=== PATIENT | male | born 1985 | race Caucasian/White ===

== ENCOUNTER 2024-12-06 10:12 | Outpatient (AMB) | payer OTHER, SELFPAY ==
--- NOTE | 2024-12-06 10:28 | MHC.OFFVIS ---
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 He is a patient of Dr. Mcclelland. He is seen for the following urologic conditions - scrotal pain - prostatitis Nonspecific pelvic symptoms Discomfort with testicles Decrease in ejaculatory volume On exam boggy right prostate Will treat for chronic prostatitis [facility] Medical History (Updated 12/06/24 @ 11:07 by Suman Lo MD) Exercise-induced asthma Review of Systems Const Denies chills and Denies fever(s) Card Reports no additional complaints and Denies syncope Resp Denies cough GI Denies abdominal pain and Denies heartburn Reports as per HPI and Denies change in libido Neuro Denies syncope Psych Denies change in libido Endo Denies change in libido Physical Exam Const General: cooperative, healthy appearing, comfortable and no acute distress Orientation/consciousness: patient oriented x3 HEENT Face and sinus: Yes normal facial exam Mouth: moist mucous membranes Neck Neck: Yes normal visual inspection, Yes full ROM and Yes trachea midline Chest Chest palpation & inspection: normal inspection of the chest Resp Effort & Inspection: normal respiratory effort, able to speak in complete sentences and no respiratory distress GI Inspection: Yes normal to inspection Rectal Exam - Male: Yes normal sphincter tone and Yes prostate normal Male General Exam: Yes normal external exam Penis: normal penis and circumcised Meatus: meatus normal Scrotum: scrotum normal Testes: Testes normal Back/Spine/Pelvis Cervical Spine: normal cervical lordosis Thoracic/Lumbar Spine: thoracic and lumbar spine normal to inspection Skin General skin exam: no rashes or lesions noted Neuro General: patient oriented x3, gait normal, tone normal and moves all extremities Extrem General: Yes normal to inspection and Yes capillary refill normal Assessment & Plan Assessment & Plan (1) Prostatitis: Code(s): N41.9 - Inflammatory disease of prostate, unspecified Category: Medical Plan Prostatitis there Medications: New ciprofloxacin HCl 500 mg PO BID 28 tabs 0RF 14 days N41.9 - Inflammatory disease of prostate, unspecified meloxicam 15 mg PO DAILY 30 tabs 0RF 30 days N41.9 - Inflammatory disease of prostate, unspecified, R10.31 - Right lower quadrant pain, R10.32 - Left lower quadrant pain prednisone 20 mg PO DAILY 5 tabs 0RF 5 days N20.0 - Calculus of kidney, N41.9 - Inflammatory disease of prostate, unspecified Patient Instructions: This note is constructed using voice recognition software. While every effort has been made to ensure accuracy customer engagement manager errors may have been included. Imaging studies, laboratory and physical exam results were discussed and reviewed in detail. No major barriers to patient understanding were identified. An opportunity to ask questions regarding the treatment plan was provided. All questions were answered. The patient expressed understanding and agreement with the above treatment plan. The patient is aware they should contact our office by phone for worsening of their current condition or the appearance of new urologic symptoms. Compliance is encouraged with any medications and followup testing that is ordered. It is a privilege to participate in the urologic care of your patient. If you have any questions or concerns regarding treatment for the above conditions, or other urologic issues, please do not hesitate to contact me. The office telephone contact is [phone]. Sincerely, Dr Suman Lo MD, [facility] - Urology Compassionate Specialist Care for the Genitourinary System Coding Level of Care Code New Pt Level 4 (42508) Diagnoses Prostatitis N41.9
--- OUTSIDE RECORDS SUMMARY | 2024-12-06 11:19 | XMS_ITS | Clinical Summary ---
Author Organization [place] [address] Jerson jones [facility] Address [address] [place] Phone Care Team Providers Care Mechanic Assistant Name Role Phone Kinsey Chi DO Primary Care Provider [phone] Allergies No known active allergies Medications albuterol HFA (PROAIR HFA ; PROVENTIL HFA ; VENTOLIN HFA) 90 mcg/actuation inhaler Inhale 2 puffs by mouth every 6 (six) hours if needed for wheezing. Exercise asthma prn Active methylPREDNISol one (MEDROL DOSPAK) 4 mg tablet Take 1 tablet by mouth as directed on the package. 21 tablet 11/20/19 25 Active Problems Problem Noted Date Diagnosed Date Exercise-induced asthma 01/16/2021 Encounters Date Type Department Care Team Description 11/24/2024 11:04 AM EDT - 11/24/2024 11:59 PM EDT [facility] En[facility] [address] [place] [address] Foot pain, right Discharge Disposition: Home or Self Care 11/24/2024 10:30 AM EDT Office Visit Internal Medicine - [address] [phone] David Hayes NP Foot pain, right (Primary Dx); Retrolisthesis of vertebrae 11/18/2024 [facility] [phone] Kinsey Chi DO Hospital Follow-up 11/17/2024 7:47 AM EDT - 11/17/2024 12:37 PM EDT Emergency [facility] [address] [place] [phone] Jeffery Santana, Contusion of left foot, initial encounter (Primary Dx); Dysuria Discharge Disposition: Home or Self Care 11/13/2024 4:57 PM EDT - 11/13/2024 7:40 PM EDT Emergency [facility] [address] [place] [phone] Contusion of left foot, initial encounter (Primary Dx) Discharge Disposition: Home or Self Care 09/21/2024 2:10 PM EDT - 09/21/2024 11:59 PM EDT Hospital Encounter Ultrasound - [facility] [address] [place], [place] [phone] Scrotum pain Discharge Disposition: Home or Self Care 09/21/2024 1:15 PM EDT Office Visit Internal Medicine - [facility] [address] [place], [place] [phone] Lashaun Mcclelland NP Scrotum pain (Primary Dx); Screen for STD (sexually transmitted disease); Pruritic rash 09/21/2024 Telephone Internal Medicine - [facility] [address] [place], [place] [phone] Kinsey Chi DO from Last 3 Months Immunizations Name Administration Dates Next Due Hepatitis B (Hkoaldy-B-Bhlsy , Recombivax HB-Adult) 19yo and older 01/26/2024 MMR, measles mumps and rubel la Live (Priorix; M-M-R II) 12mo and older 01/26/2024 Pneumococcal polysaccharide 23 valent (Pneumovax 23) 2yo and older 03/05/2021 Tdap Tetanus diptheria acell ular pertussis (Boostrix; Adacel) 7yo and older 03/05/2021 Surgical History Surgery Date Site/Laterality Comments SHOULDER SURGERY PROCEDURE: HISTORICAL SHOULDER SURGERY OTHER SURGICAL HISTORY PROCEDURE: EXCISION OF SALIVARY GLAND Medical History Medical History Date Comments Exercise-induced asthma 01/16/2021 DX:Exerc ise-induced asthma Family History Medical History Relation Name Comments No Known Problems Brother No Known Problems Father Parkinson's Disease Maternal Grandfather Alzheimer's disease Maternal Grandmother No Known Problems Mother Prostate cancer Paternal Grandfather Stroke Paternal Grandmother No Known Problems Sister 1 No Known Problems Sister 2 Relation Name Status Comments Brother Alive Father Alive Maternal Grandfather Maternal Grandmother Mother Alive Paternal Grandfather Paternal Grandmother Sister 1 Alive Sister 2 Alive Social History Tobacco Use Types Packs/Day Years Used Date Smoking Tobacco: Former Cigarettes 0.5 18.5 S tarted: 06/08/2006 Smokeless Tobacco: Never Tobacco Cessation:Counseling Given: Not Answered Alcohol Use Standard Drinks/Week Comments Not Currently 14 (1 standard drink = 0.6 oz pu re alcohol) Housing Instability Answer Date Recorde d Are you worried that in the next 2 months you may not have stable housing? Patient declined 09/19/2024 Food Access & Nutrition Answer Date Rec orded Do you have access to a vari ety of food including fruits and vegetables? Patient declined 09/19/2024 Health Literacy Answer Date Recorded How often do you need to hav e someone help you when you read instructions, pamphlets, or other written material from your doctor or pharmacy? Patient declined 09/19/2024 Caregiver: How often do you need to have someone help you when you read instructions, pamphlets, or other written material from your doctor or pharmacy? Not on file 025 Financial Risk Answer Date Recorded How hard is it for you to pa y for the very basics like food, housing, medical care, and air conditioning / heating? Patient declined 09/19/2024 Transportation Answer Date Recorded Has the lack of transportati on kept you from meetings, work, or from getting things needed for daily living? Patient declined 09/19/2024 Has the lack of transportati on kept you from medical appointments or from getting medications? Patient declined 09/19/2024 Social Isolation Answer Date Recorded How often do you feel lonely or isolated from those around you? Patient declined 09/19/2024 Food Risk Answer Date Recorded Within the past 12 months we worried whether our food would run out before we got money to buy more. Patient declined 025 Within the past 12 months th e food we bought just didn't last and we didn't have money to get more. Patient declined 09/06 Dependent Care Answer Date Recorded Do you need help finding or paying for care for your loved ones. For example, child care group leader or elderly care for an older adult? Patient declined 09/19/2024 Education Answer Date Recorded Do you think completing more education or training, like finishing a GED, going to college, or learning a trade, would be helpful for you? Patient declined 09/19/2024 Employment and Income Answer Date Recor ded During the last four weeks, have you been actively looking for work? Patient declined 09/19/2024 Living Situation Answer Date Recorded What is your living situation? 0 09/19/2024 Sex and Gender Information Value Date Recorded Sex Assigned at Not on file Legal Sex Male 9:39 AM EST Gender Identity Not on file Sexual Orientation Not on file Obstetrics History Last Filed Vital Signs Vital Sign Reading Time Taken Comments Blood Pressure 112/80 11/24/2024 10:28 AM EDT Pulse 72 11/24/2024 10:28 AM EDT Temperature 36.7 C (98.1 F) 11/17/2024 10:25 AM EDT Respiratory Rate 18 11/24/2024 10:2 8 AM EDT Oxygen Saturation 100% 11/17/2024 10: 25 AM EDT Inhaled Oxygen Concentration - - Weight 74.8 kg (164 lb 14.4 oz) 025 10:28 AM EDT Height 170.2 cm (5' 7 ) 11/24/2024 10:2 8 AM EDT Body Mass Index 25.83 11/24/2024 10:28 AM EDT Plan of Treatment Health Maintenance Due Date Last Done Comments Pneumococcal Vaccine: Pediatrics (0 to 5 Years) and At-Risk Patients (6 to 64 Years) (2 of 2 - PCV) 03/05/2022 03/05/2021 COVID-19 Vaccine ( - 2023-2 5 season) 2024 10/13/2020, 09/15/2020 Hepatitis B Vaccines (2 of 3 - 19+ 3-dose series) 02/23/2024 01/26/2024 Influenza Vaccine (#1) 2025 Depression Screening 09/19/2025 09/19/2024 Social Influencers of Health Screening 09/19/2025 09/19/2024 Cholesterol Screening (Lipid Panel) 03/11/2026 03/11/2021 DTaP,Tdap,and Td Vaccines (2 - Td or Tdap) 03/05/2031 03/05/2021 MMR Vaccines Aged Out 01/26/2024 No longer eligi ble based on patient's age to complete this topic HIV Screening Completed 09/21/2024 Hepatitis C Screening Completed 09/21/2024 HIB Vaccines Aged Out No longer eligi ble based on patient's age to complete this topic HPV Vaccines Aged Out No longer eligi ble based on patient's age to complete this topic Hepatitis A Vaccines Aged Out No long er eligible based on patient's age to complete this topic IPV Vaccines Aged Out No longer eligi ble based on patient's age to complete this topic Meningococcal ACWY Vaccine Aged Out N o longer eligible based on patient's age to complete this topic Meningococcal B Vaccine Aged Out No l onger eligible based on patient's age to complete this topic RSV Immunization Patients Under 20 months Aged Out No longer eligible b ased on patient's age to complete this topic Varicella Vaccines Aged Out No longer eligible based on patient's age to complete this topic Procedures Procedure Name Priority Date/Time Associated Diagnosis Comments XR LUMBAR SPINE 4+ VIEWS Routine 11/24/2024 11:26 AM EDT Foot pain, right CHLAMYDIA TRACHOMATIS AND NEISSERIA GONORRHOEAE PCR STAT 11/17/2024 11:45 AM EDT CABRAL URINE CULTURE TUBE STAT 11/18/19 9:17 AM EDT URINALYSIS WITH REFLEX MICROSCOPIC AND CULTURE STAT 11/17/2024 9:17 AM EDT URINALYSIS WITH REFLEX MICROSCOPIC AND CULTURE STAT 11/17/2024 9:17 AM EDT C-REACTIVE PROTEIN STAT 11/17/2024 8: 12 AM EDT CBC WITH AUTO DIFFERENTIAL STAT 11/17/2024 8:04 AM EDT COMPREHENSIVE METABOLIC PANEL STAT 11/17/2024 8:04 AM EDT CBC AND DIFFERENTIAL STAT 11/17/2024 8:[address] LOWER EXTREMITY WO CONTRAST LEFT STAT 11/13/2024 6:34 PM EDT XR FOOT 3+ VIEWS LEFT STAT 11/13/2024 1:51 PM EDT US SCROTUM AND CONTENTS Routine 09/22/19 2:33 PM EDT Scrotum pain CABRAL URINE CULTURE TUBE Routine 09/22/19 2:08 PM EDT Screen for STD (sexually transmitted disease) URINALYSIS WITH REFLEX MICROSCOPIC AND CULTURE Routine 09/21/2024 2:08 PM EDT Screen for STD (sexually transmitted disease) TREPONEMA PALLIDUM ANTIBODY WITH REFLEX TO RPR AND PARTICLE AGGLUTINATION Routine 09/21/2024 2:08 PM EDT Screen for STD (sexually transmitted disease) URINALYSIS WITH REFLEX MICROSCOPIC AND CULTURE Routine 09/21/2024 2:08 PM EDT Screen for STD (sexually transmitted disease) HIV 1, 2 ANTIBODY, P24 ANTIGEN WITH REFLEX TO DIFFERENTIATION Routine 09/21/2024 2:08 PM EDT Screen for STD (sexually transmitted disease) HEPATITIS C ANTIBODY Routine 09/21/2024 2:08 PM EDT Screen for STD (sexually transmitted disease) CHLAMYDIA TRACHOMATIS AND NEISSERIA GONORRHOEAE PCR Routine 09/21/2024 2:08 PM EDT Screen for STD (sexually transmitted disease) LIPID PANEL Routine 03/11/2021 from Last 3 Months or Most Recently Relevant to Health Maintenance Results * XR Lumbar Spine 4+ Views (11/24/2024 11:26 AM EDT) Anatomical Region Laterality Modality Spine, L-spine Radiographic Shirin ging 11/24/2024 1:31 PM EDT Impressions 11/24/2024 1:33 PM EDT Minimal grade 1 retrolisthesis of L4 on L5. No significant degenerative changes. -------- FINAL REPORT -------- Dictated By: Meche Rodriguez Dictated Date: 11/24/2024 13:31 ET Assigned Physician: Meche Rodriguez Reviewed and Electronically Signed By: Meche Rodriguez Signed Date: 11/24/2024 13:33 ET Workstation ID: [id number] Transcribed By: Self Edit Transcribed Date: 11/24/2024 13:31 ET Narrative 11/24/2024 1:33 PM EDT XR LUMBAR SPINE 5 VIEWS Reason: OTHER foot pain Comparison: None FINDINGS: Minimal grade 1 retrolisthesis of L4 on L5. Vertebral body heights and disc spaces are preserved. No facet arthropathy. Bilateral sacroiliac joints are intact. Procedure Note Meche Rodriguez MD - 11/24/2024 XR LUMBAR SPINE 5 VIEWS Reason: OTHER foot pain Comparison: None FINDINGS: Minimal grade 1 retrolisthesis of L4 on L5. Vertebral body heights anddisc spaces are preserved. No facet arthropathy. Bilateral sacroiliacjoints are intact. IMPRESSION: Minimal grade 1 retrolisthesis of L4 on L5. No significant degenerativechanges. -------- FINAL REPORT -------- Dictated By: Meche Rodriguez Dictated Date: 11/24/2024 13:31 ET Assigned Physician: Meche Rodriguez Reviewed and Electronically Signed By: Meche Rodriguez Signed Date: 11/24/2024 13:33 ET Workstation ID: [id number] Transcribed By: Self Edit Transcribed Date: 11/24/2024 13:31 ET David Hayes LEAD NETWORK ENGINEER IMG XR PROCEDURES Final Result * Chlamydia trachomatis and Neisseria gonorrhoeae molecular study (11/17/2024 11:45 AM EDT) Only the most recent of2 resultswithin the time period is included. Neisseria gonorrhoeae PCR Negative Negative LAB MOLECULAR DIAGNOSTICS METHOD 11/17/2024 2:55 PM EDT [facility] Chlamydia trachomatis PCR Negative Negative LAB MOLECULAR DIAGNOSTICS METHOD 11/17/2024 2:55 PM EDT [facility] Urine Urine specimen from urethra / Unknown Non-blood Collection / Unknown 11/17/2024 11:45 AM EDT 11/17/2024 12:13 PM EDT us Jeffery Santana DO LAB MICROBIOLOGY - GENERAL ORDERABLES Final Result [facility] [address] [place] [address], [place] [phone] * Urinalysis with reflex microscopic and culture (11/17/2024 9:17 AM EDT) Only the most recent of2 resultswithin the time period is included. [facility] [place] Urine 1.010 1.003 - 1.030 LAB URINALYSIS - AUTOMATED METHOD 11/17/2024 9:53 AM [facility] pH, Urine 6.0 5.0 - 8.0 pH LAB URINALYSIS - AUTOMATED METHOD 11/17/2024 9:53 AM [facility] Leukocytes, Urine Negative Negative LAB URINALYSIS - AUTOMATED METHOD 11/17/2024 9:53 AM [facility] Nitrite, Urine Negative Negative LAB URINALYSIS - AUTOMATED METHOD 11/17/2024 9:53 AM [facility] Protein, Urine Negative <=Trace mg/dL LAB URINALYSIS - AUTOMATED METHOD 11/17/2024 9:53 AM [facility] Glucose, Urine Negative Negative mg/dL LAB URINALYSIS - AUTOMATED METHOD 11/17/2024 9:53 AM [facility] Ketones, Urine Negative Negative mg/dL LAB URINALYSIS - AUTOMATED METHOD 11/17/2024 9:53 AM EDT [facility] Urobilinogen, Urine 0.2 0.2 - 1.0 mg/dL LAB URINALYSIS - AUTOMATED METHOD 11/17/2024 9:53 AM EDT [facility] Bilirubin, Urine Negative Negative LAB URINALYSIS - AUTOMATED METHOD 11/17/2024 9:53 AM EDT [facility] Blood, Urine Negative Negative LAB URINALYSIS - AUTOMATED METHOD 11/17/2024 9:53 AM EDT [facility] Urine Urine specimen obtained by clean catch procedure / Unknown Non-blood Collection / Unknown 11/17/2024 9:17 AM EDT 11/17/2024 9:43 AM EDT Jeffery Santana DO LAB URINE ORDERABLES Final Result Performing Organization Address City/[facility]/ZIP Co de Phone Number [facility] [address] [place] [address], [place] [phone] * [place] urine culture tube (11/17/2024 9:17 AM EDT) Only the most recent of2 resultswithin the time period is included. Extra Tube Hold for add-ons. 11/17/2024 11:01 AM EDT [facility] Comment:Auto resulted. Urine Urine specimen obtained by clean catch procedure / Unknown Non-blood Collection / Unknown 11/17/2024 9:17 AM EDT 11/17/2024 9:43 AM EDT us Jeffery Santana DO LAB URINE ORDERABLES Final Result [facility] [address] [place] [address], [place] [phone] * C-reactive protein (11/17/2024 8:12 AM EDT) [facility] C-Reactive Protein <0.29 <=0.50 mg/dL LAB CHEMISTRY METHOD 11/17/2024 9:20 AM EDT [facility] Blood Venous blood specimen / Unknown Venipuncture / Unknown 11/17/2024 8:12 AM EDT 11/17/2024 8:40 AM EDT Jeffery Santana DO LAB BLOOD ORDERABLES Final Result [facility] [address] [place] [address], * (ABNORMAL) CBC auto differential (11/17/2024 8:04 AM EDT) [facility] WBC 8.0 4.8 - 10.8 K/mcL LAB HEMETOLOGY METHOD 11/17[facility]2024 8:[facility] RBC 5.20 4.50 - 5.50 M[facility] LAB HEMETOLOGY METHOD 11/17/2024 8:50 AM EDT [facility] Hemoglobin 16.1 13.5 - 17.5 g/dL LAB HEMETOLOGY METHOD 11/17/2024 8:50 AM [facility] Hematocrit 47.5 42.0 - 54.0 % LAB HEMETOLOGY METHOD 11/17/2024 8:50 AM EDT [facility] MCV 91.7 79.0 - 98.0 FL LAB HEMETOLOGY METHOD 11/17/2024 8:50 [facility] MCH 31.1 27.0 - 32.0 pcg LAB HEMETOLOGY METHOD 11/17/2024 8:50 [facility] MCHC 33.9 32.0 - 37.0 g/dL LAB HEMETOLOGY METHOD 11/17/2024 8:50 AM EDT [facility] RDW 12.7 11.0 - 15.0 % LAB HEMETOLOGY METHOD 11/17/2024 8:50 AM T [facility] Platelets 297 130 - 400 K/mcL LAB HEMETOLOGY METHOD 11/17/2024 8:50 AM [facility] MPV 10.0 7.0 - 11.0 FL LAB HEMETOLOGY METHOD 11/17/2024 8:50 AM [facility] NRBC 0.0 <1.0 % LAB HEMETOLOGY METHOD 11/17/2024 8:50 AM [facility] NRBC Absolute 0.00 <0.10 K/mcL LAB HEMETOLOGY METHOD 11/17/2024 8:50 AM [facility] Neutrophils Relative 48.2 % LAB HEMETOLOGY METHOD 11/17/2024 8:50 AM [facility] Lymphocytes Relative 39.8 % LAB HEMETOLOGY METHOD 11/17/2024 8:50 AM [facility] Monocytes Relative 8.1 % LAB HEMETOLOGY METHOD 11/17/2024 8:50 AM [facility] Eosinophils Relative 1.2 % LAB HEMETOLOGY METHOD 11/17/2024 8:50 AM [facility] Basophils Relative 2.0 % LAB HEMETOLOGY METHOD 11/17/2024 8:50 AM [facility] Immature Granulocytes Relative 0.7 % LAB HEMETOLOGY METHOD 11/17/2024 8:50 AM [facility] Neutrophils Absolute 3.87 1.50 - 7.00 K/mcL LAB HEMETOLOGY METHOD 11/17/2024 8:50 AM [facility] Lymphocytes Absolute 3.20 1.00 - 5.00 K/mcL LAB HEMETOLOGY METHOD 11/17/2024 8:50 AM [facility] Monocytes Absolute 0.65 0.20 - 1.00 K/mcL LAB HEMETOLOGY METHOD 11/17/2024 8:50 AM EDT [facility] Eosinophils Absolute 0.10 0.00 - 0.50 K/[facility] LAB HEMETOLOGY METHOD 11/17/2024 8:50 AM EDT [facility] Basophils Absolute 0.16 0.00 - 0.20 K/[facility] LAB HEMETOLOGY METHOD 11/17/2024 8:50 AM EDT [facility] Immature Granulocytes Absolute 0.06(H) 0.00 - 0.03 K/[facility] LAB HEMETOLOGY METHOD 11/17/2024 8:50 AM [facility] Blood Venous blood specimen / Unknown Venipuncture / Unknown 11/17/2024 8:04 AM EDT 11/17/2024 8:40 AM EDT Jeffery Santana DO LAB BLOOD ORDERABLES Final Result [facility] [address] [place] [address], * Comprehensive metabolic panel (11/17/2024 8:04 AM EDT) Sodium 137 133 - 145 mmol/L LAB CHEMISTRY METHOD 11/17/2024 9:28 AM [facility] Potassium 3.9 3.5 - 5.5 mmol/L LAB CHEMISTRY METHOD 11/17/2024 9:28 AM [facility] Comment:Hemolysis present Chloride 101 96 - 110 mmol/L LAB CHEMISTRY METHOD 11/17/2024 9:28 AM [facility] CO2 25 21 - 32 mmol/L LAB CHEMISTRY METHOD 11/17/2024 9:28 AM [facility] Anion Gap 11 3 - 11 LAB CHEMISTRY METHOD 11/17/2024 9:28 AM [facility] Glucose 89 70 - 100 mg/dL LAB CHEMISTRY METHOD 11/17/2024 9:28 AM [facility] BUN 15 5 - 25 mg/dL LAB CHEMISTRY METHOD 11/17/2024 9:28 AM [facility] Creatinine 1.15 0.70 - 1.30 mg/dL LAB CHEMISTRY METHOD 11/17/2024 9:28 AM [facility] eGFR 82 >=60 mL/min/1. 73m2 LAB CHEMISTRY METHOD 11/17/2024 9:28 AM [facility] Comment:Calculation based on the Chronic Kidney Disease Epidemiology Collaboration (CKD-EPI) equation refit without adjustment for race. BUN/Creatinine Ratio 13.0 LAB CHEMISTRY METHOD 11/17/2024 9:28 AM [facility] Calcium 9.3 8.5 - 10.5 mg/dL LAB CHEMISTRY METHOD 11/17/2024 9:28 AM [facility] AST (SGOT) 18 10 - 42 unit/L LAB CHEMISTRY METHOD 11/17/2024 9:28 AM [facility] Comment:Hemolysis present ALT (SGPT) 21 10 - 60 unit/L LAB CHEMISTRY METHOD 11/17/2024 9:28 AM [facility] Alkaline Phosphatase 121 42 - 121 unit/L LAB CHEMISTRY METHOD 11/17/2024 9:28 AM [facility] Total Protein 7.5 6.0 - 8.0 g/dL LAB CHEMISTRY METHOD 11/17/2024 9:28 AM [facility] Albumin 4.0 3.2 - 5.0 g/dL LAB CHEMISTRY METHOD 11/17/2024 9:28 AM [facility] Total Bilirubin 1.1 0.0 - 1.4 mg/dL LAB CHEMISTRY METHOD 11/17/2024 9:28 AM [facility] Blood Venous blood specimen / Unknown Venipuncture / Unknown 11/17/2024 8:04 AM EDT 11/17/2024 8:40 AM EDT Jeffery Santana DO LAB BLOOD ORDERABLES Final Result [facility] [address] [place] [address], [place] [phone] * CT Lower Extremity wo Contrast Left (11/13/2024 6:34 PM EDT) Anatomical Region Laterality Modality Lower Extremities Left Computed Tomog emilia 11/13/2024 7:03 PM EDT Impressions 11/13/2024 7:03 PM EDT Impression: No acute findings. This document has been electronically signed by: Adelia Cali MD on 11/13/2024 19:03:53 Narrative 11/13/2024 7:03 PM EDT INDICATION: left medial foot pain from injury, unable to bear weight. Please only scan through foot CT left foot without contrast Comparison: None Findings: No acute fracture. No dislocation. Joint spaces are maintained. No significant degenerative changes. No bone erosions or bone destruction. No ankle joint effusion. No significant focal soft tissue swelling. Procedure Note Adelia Cali MD - 11/13/2024 INDICATION: left medial foot pain from injury, unable to bear weight. Please only scan through foot CT left foot without contrast Comparison: None Findings: No acute fracture. No dislocation. Joint spaces are maintained. No significant degenerative changes. No bone erosions or bone destruction. No ankle joint effusion. No significant focal soft tissue swelling. IMPRESSION: Impression: No acute findings. This document has been electronically signed by: Adelia Cali MD on 11/13/2024 19:03:[address] PROCEDURES Final Re sult * XR Foot 3+ Views Left (11/13/2024 1:51 PM EDT) Anatomical Region Laterality Modality Lower Extremities, Foot Left Radiogra phic Imaging 11/13/2024 2:52 PM EDT Impressions 11/13/2024 2:53 PM EDT FINDINGS/IMPRESSION: No acute fracture or dislocation. Joint spaces are preserved. No focal soft tissue swelling. -------- FINAL REPORT -------- Dictated By: ADDISON POLLACK Dictated Date: 11/13/2024 14:52 ET Assigned Physician: ADDISON POLLACK Reviewed and Electronically Signed By: ADDISON POLLACK Signed Date: 11/13/2024 14:53 ET Workstation ID: [id number] Transcribed By: Self Edit Transcribed Date: 11/13/2024 14:52 ET Narrative 11/13/2024 2:53 PM EDT XR FOOT 3+ VIEWS LEFT INDICATION: Pain TECHNIQUE: XR FOOT 3+ VIEWS LEFT COMPARISON: No priors available. Procedure Note Addison Pollack MD - 11/13/2024 XR FOOT 3+ VIEWS LEFT INDICATION: Pain TECHNIQUE: XR FOOT 3+ VIEWS LEFT COMPARISON: No priors available. IMPRESSION: FINDINGS/IMPRESSION: No acute fracture or dislocation. Joint spaces arepreserved. No focal soft tissue swelling. -------- FINAL REPORT -------- Dictated By: ADDISON POLLACK Dictated Date: 11/13/2024 14:52 ET Assigned Physician: ADDISON POLLACK Reviewed and Electronically Signed By: ADDISON POLLACK Signed Date: 11/13/2024 14:53 ET Workstation ID: [id number] Transcribed By: Self Edit Transcribed Date: 11/13/2024 14:52 ET us Thuan Booker DO IMG XR PROCEDURES Final Result * US Scrotum and Contents (09/21/2024 2:33 PM EDT) Anatomical Region Laterality Modality Body Ultrasound 09/21/2024 6:2 4 PM EDT Impressions 09/21/2024 6:27 PM EDT No testicular or epididymal abnormality identified. POS - [id number] -------- FINAL REPORT -------- Dictated By: Arely Palma Dictated Date: 09/21/2024 18:24 ET Assigned Physician: Arely Palma Reviewed and Electronically Signed By: Arely Palma Signed Date: 09/21/2024 18:27 ET Workstation ID: [id number] Transcribed By: Self Edit Transcribed Date: 09/21/2024 18:24 ET Narrative 09/21/2024 6:27 PM EDT EXAM: Scrotal ultrasound HISTORY: Bilateral scrotal pain. COMPARISON: None FINDINGS: Testes are within normal limits for size: right testis measures 4.3 x 3.1 x 2.1 cm and the left measures 3.3 x 3.2 x 2.3 cm. Testicular echotexture is homogeneous bilaterally without a focal abnormality. No hypervascularity on color Doppler. No epididymal abnormality. No significant hydrocele. No evidence of a varicocele. Procedure Note Arely Palma MD - 09/21/2024 EXAM: Scrotal ultrasound HISTORY: Bilateral scrotal pain. COMPARISON: None FINDINGS: Testes are within normal limits for size: right testis measures 4.3 x 3.1x 2.1 cm and the left measures 3.3 x 3.2 x 2.3 cm. Testicular echotextureis homogeneous bilaterally without a focal abnormality. Nohypervascularity on color Doppler. No epididymal abnormality. No significant hydrocele. No evidence of a varicocele. IMPRESSION: No testicular or epididymal abnormality identified. POS - [id number] -------- FINAL REPORT -------- Dictated By: Arely Palma Dictated Date: 09/21/2024 18:24 ET Assigned Physician: Arely Palma Reviewed and Electronically Signed By: Arely Palma Signed Date: 09/21/2024 18:27 ET Workstation ID: [id number] Transcribed By: Self Edit Transcribed Date: 09/21/2024 18:24 ET us Lashaun Mcclelland NP IMG US PROCEDURES Final Result * Hepatitis C antibody (09/21/2024 2:08 PM EDT) Hepatitis C Antibody Negative Negative LAB CHEMISTRY METHOD 09/21/2024 5:08 PM EDT [facility] Blood Venous blood specimen / Unknown Venipuncture / Unknown 09/21/2024 2:08 PM EDT 09/21/2024 2:08 PM EDT Lashaun Mcclelland NP LAB BLOOD ORDERABLES Final Resul t Performing Organization Address [facility]/ZIP Co de Phone Number [facility] [address] [place] [address], [place] [phone] * HIV 1,2 antibody, p24 antigen with reflex to differentiation (09/21/2024 2:08 PM EDT) HIV Combo AB/AG Negative Negative LAB CHEMISTRY METHOD 09/21/2024 5:08 PM EDT [facility] Blood Venous blood specimen / Unknown Venipuncture / Unknown 09/21/2024 2:08 PM EDT 09/21/2024 2:08 PM EDT Narrative [facility] - 09/21/2024 5:08 PM EDT This assay is a 4th generation assay allowing for earlier detection of HIV infection by detecting the presence of the HIV-1 p24 antigen as well as the traditional antibodies to HIV type 1 (including group O) and type 2. Use of a 4th generation assay is the current CDC recommendation for HIV screening. us Lashaun Mcclelland NP LAB BLOOD ORDERABLES Final Resul t Performing Organization Address [facility] Co de Phone Number [facility] [address] [place] [address], [place] [phone] * Treponema pallidum antibody with reflex to RPR and particle agglutination (09/21/2024 2:08 PM EDT) T. Pallidum Antibodies Negative Negative LAB CHEMISTRY METHOD 09/21/2024 4:39 PM EDT [facility] Blood Venous blood specimen / Unknown Venipuncture / Unknown 09/21/2024 2:08 PM EDT 09/21/2024 2:08 PM EDT us Lashaun Mcclelland NP LAB BLOOD ORDERABLES Final Resul t [facility] [address] [place] [address], * Lipid panel (03/11/2021) LDL/HDL Ratio 3 Triglycerides 116 mg/dL Cholesterol 162 mg/dL HDL 59 mg/dL LDL Cholesterol 80 mg/dL Blood Venous blood specimen / Unknown Historical Provider LAB BLOOD ORDERABLES Alejandrina l Result from Last 3 Months or Most Recently Relevant to Health Maintenance Insurance [facility] MEDICAID - [place] Care Teams Mechanic Assistant Relationship Specialty Start Date End Date Kinsey Chi DO [address] [place] [address] PCP - General Internal Medicine 09/19/24
--- OUTSIDE RECORDS SUMMARY | 2024-12-06 11:19 | XMS_ITS | Data Portability ---
Author Organization [facility], [address] Address [address] [place] [address] Assessment No assessment recorded. Plan of Treatment Reminders Order Date Submit Date Provider Last Modified By Organization Details Last Modified Time Details Appointments None recorded. Lab Mycobacteri um tuberculosi s stimulated gamma interferon, qual, blood 2023 024 [facility], [facility] [place], [address], 4 12:06:05 Mycobacteri um tuberculosi s stimulated gamma interferon, qual, blood 2023 024 [facility], [address] [place], [address], 4 18:06:15 Referral None recorded. Procedures None recorded. Surgeries None recorded. Imaging None recorded. Medication Orders None recorded. Patient TargetsNo targets recorded. Patient InstructionsNo instructions recorded. Reason for Referral None Reported. Results Created Date Observation Date Name Description Value Unit Range Abnormal Flag Note LastModifiedBy Organization Detail LastModifiedTime 11/27/19 24 12/01/2023 QUANT IFERO N-TB GOLD PLUS quantiferon incubation COMMEN T Test not perfo rmed. Deter iorat ion occur red durin g speci men handl ing. Not Available [facility] ([facility]) [address] [facility], [place], [address], 12/01/2023 18:06:14 11/27/19 24 12/01/2023 QUANT IFERO N-TB GOLD PLUS quantiferon- TB gold plus TNP Test not perfo rmed Not Available [facility] ([facility]) [address] [facility], [place], [address], 12/01/2023 18:06:14 11/27/19 24 12/01/[address] PROBL EM request problem COMMEN T Test not perfo rmed. Deter iorat ion occur red durin g speci men handl ing. TEST: [id number] Quant iFERO N-TB Gold Plus Not Available [facility] ([facility]) [address] [facility], [place], [address], 12/01/2023 18:06:15 12/09/19 24 12/15/2023 QUANT IFERO N-TB GOLD PLUS quantiferon incubation TNP Test not perfo rmed. The speci men submi tted does not meet the labor atory 's crite quinn for accep tabil ity (spec imen was not recei nathan withi n 16 hours of colle ction ). Pleas e resub whitney if clini cassidy indic ated. Not Available [facility] ([facility]) [address] [place], [address], 12/15/2023 12:06:05 12/09/19 24 12/15/2023 QUANT IFERO N-TB GOLD PLUS quantiferon- TB gold plus TNP Test not perfo rmed Not Available [facility] ([facility]) [address] [place], [address], 12/15/2023 12:06:05 12/09/19 24 12/15/[address] PROBL EM request problem TNP abnormal Comme nt: Test not perfo rmed. The speci men submi tted does not meet the labor atory 's crite quinn for accep tabil ity (spec imen was not recei nathan withi n 16 hours of colle ction ). Pleas e resub whitney if clini cassidy indic ated. TEST: [id number] 9 Quant iFERO N-TB Gold Plus Not Available [facility] ([facility]) [address], [place], [address], 12/15/2023 12:06:06 Result Notes None recorded. Procedures Surgical History Date Name Laterality Status Provider Name and Address Organization Details Recorded Time 12/09/19 24 OC - Venipuncture Template completed Jodie Gardner PA - [facility] 12/09/2023 14:22:41 11/27/19 24 OC-UDS Send Out Template NON DOT completed Sofy Ricardo PA - [facility] 11/27/2023 15:12:01 11/27/19 24 OC - Venipuncture Template completed Sofy Ricardo PA - [facility] 11/27/2023 16:17:31 Imaging Results None recorded. Procedure Notes None recorded. Medical Equipment None Reported. Medications Name Sig Start Date Stop Date Status Note LastModified by Organization Details LastModified Time meloxicam 15 mg tablet active Not Available Not Available No t Available doxycycline monohydrate 100 mg tablet TAKE 1 TABLET BY MOUTH TWICE A DAY FOR 10 DAYS active Not Available Not Available No t Available albuterol sulfate HFA 90 mcg/actuatio n aerosol inhaler INHALE 2 PUFFS BY MOUTH 4 TIMES A DAY NEEDED FOR SHORTNESS OF BREATH OR WHEEZING FOR 14 DAYS active Not Available Not Available Not Available ipratropium bromide 42 mcg (0.06 %) nasal spray PLEASE SEE ATTACHED FOR DETAILED DIRECTIONS active Not Available Not Available N ot Available fluticasone propionate 50 mcg/actuatio n nasal spray,suspen esha SPRAY 2 SPRAYS INTRANASALL Y TWICE A DAY FOR 7 DAYS active Not Available Not Available No t Available doxycycline hyclate 100 mg tablet TAKE 1 TABLET BY MOUTH TWICE A DAY FOR 10 DAYS active Not Available Not Available No t Available Vitals None Recorded Social History None recorded. Functional Status None recorded. Mental Status None recorded. Family History Nothing Reported. Medical History No medical history recorded. Past Encounters Encounter ID Performer Location Encounter Start Date Encounter Closed Date Diagnosis/Indication Diagnosis SNOMED-CT Code Diagnosis ICD10 Code Diagnosis Note [id number] [address] [place] [address] 02/14/2016 10:48:12 02/14/2016 11:40:22 [id number] [address] [place] [address] 06/18/2020 13:06:26 06/18/2020 15:14:19 [id number] [address] [place] [address] 10/13/2016 09:54:33 10/13/2016 10:36:19 [id number] Ren Pettit DO [address] [place] [phone] 11/27/2023 14:31:57 11/27/2023 16:19:49 History and physical examination, occupation 191506271 Z02.1 [id number] [place] [address] [address] 12/09/2023 13:54:10 12/09/2023 14:25:21 History and physical examination, occupation [id number] Z02.1 History an d physical examination, pre-employment [id number] Z02.1 Health Concerns Section Related Observation LastModified by Organization Detai ls LastModified Time None Recorded Concern Status LastModified by Organization Details LastModified Time None Recorded Advance Directives Directive None Recorded Payers Insurance Date Sequence Insurance Name Policy Number Policy Blair Covered Member ID Blair Member ID Guarantor Name 11/27/2023 OC-ESCREEN [facility] OC-ESCREEN Gregor Laughlni 12/09/2023 1 [facility] [id number] Gregor Laughlin [id number] Gregor Laughlin
== END 2024-12-06 11:27 | disposition home or self-care (01) ==
LOC: HO.HUSH 10:12
PROVIDERS: PCP Nurse Practitioner; Visit Provider Urology
DX: N41.9 Inflammatory disease of prostate, unspecified (principal); Z13.9 Encounter for screening, unspecified
CPT/HCPCS: 99204

== ENCOUNTER → 2024-12-06 10:12 | Outpatient (BNVA) | payer OTHER, SELFPAY | PROVIDERS: PCP Nurse Practitioner; Visit Provider Urology | DX: N20.0 Calculus of kidney (principal); N41.9 Inflammatory disease of prostate, unspecified; R10.31 Right lower quadrant pain; R10.32 Left lower quadrant pain | CPT/HCPCS: 81003; 99202 ==